=== PATIENT | male | born 1955 | race Caucasian/White ===

== ENCOUNTER 2018-12-18 15:48 | Inpatient (IN) | payer MEDICARE ==
[2018-12-18 18:14] LABS: Absolute Lymphocytes (CBC) 0.4 K/uL (0.7-4.9); Basophils % 0.5 % (0-1.3); Eosinophils % 0.5 % (0-4.4); Hematocrit 42.6 % (39.6-49.0); Lymphocytes % 9.5 % (15.3-44.8); MPV 9.8 fL (7.6-11.3); Monocytes % 18.9 % (3.3-12.3); RBC Red Blood Cell Count 5.15 M/uL (4.33-5.43)
[2018-12-18 18:31] LABS: Bilirubin Direct 0.2 mg/dL (0-0.2); Bilirubin Total 0.7 mg/dL (0.2-1.0); Potassium 4.2 mmol/L (3.5-5.1); Protein, Total 7.1 g/dL (6.4-8.2)
[2018-12-18] MEDS ORDERED: FENTANYL CITR 100 MCG/2 ML ONE ×2 (18:45→20:36)
[2018-12-18] MEDS ORDERED: NA CHLORIDE 0.9% 2,000 ML ONE (18:46)
[2018-12-18] MEDS ORDERED: ONDANSETRON 4 MG/2 ML VIAL ONE (18:46)
[2018-12-18 18:59] LABS: Blood Morphology Comment NOT SEEN (NOT SEEN); Platelet Estimate DECR; Urine White Blood Cell Casts OK
--- NOTE | 2018-12-18 19:38 | RAD REPORT ---
EXAM DESCRIPTION: CTAbdomen Pelvis W Contrast - 12/18/2018 7:27 pm CLINICAL HISTORY: Abdominal pain. ABD PAIN COMPARISON: <Comparisons> TECHNIQUE: Biphasic CT imaging of the abdomen and pelvis was performed with 100 ml non-ionic IV cont rast. All CT scans are performed using dose optimization technique as appropriate and may include automated exposure control or mA/KV adjustment according to patient size. FINDINGS: The lung bases are clear. The liver contains multiple low-density lesions, similar to comparative study. The spleen appears mod erately enlarged. The pancreas, adrenal glands and kidneys show no acute or worrisome process. Bulky adenopathy is seen in the hepatic hilum region indicate aortocaval region measuring 4.9 x 4.5 c m. Enlarged lymph nodes are seen in the retroperitoneum and the small bowel mesentery. No bowel obstr uction, free fluid or free air. The appendix is normal. No lytic or blastic bone lesion. IMPRESSION: No acute intra-abdominal or pelvic finding. Bulky adenopathy in the abdomen and multiple hypodense liver lesions are present compatible with recently diagnosed lymphoma history. Splenomegaly.
--- NOTE | 2018-12-18 20:23 | ER ---
Nurse's Notes [facility] [place] Name: Edith Mcconnell Jr Age: 63 yrs Sex: Male : 1955 Arrival Date: 12/18/2018 Time: 15:54 Bed 27 Private MD: Diagnosis: Generalized abdominal pain;Cutaneous T-cell lymphoma, unspecified, intra-abdominal lymph nodes Presentation: 12/18 16:22 Presenting complaint: Patient states: States he was diagnosed with lymphoma a week ago and hasn't started chemotherapy yet. He was prescribed Tramadol for pain by GI but it is not working on him. Pt C/O abd pain that radiates to the back currently 4/1o but at worst is a 10/10. Pt also experiencing loose bowel movement lately and has fever last night of 101.8. Transition of care: patient was not received from another setting of care. Onset of symptoms was December 17, 2018. Risk Assessment: Do you want to hurt yourself or someone else? Patient reports no desire to harm self or others. Initial Sepsis Screen: Does the patient meet any 2 criteria? No. Patient's initial sepsis screen is negative. Does the patient have a suspected source of infection? No. Patient's initial sepsis screen is negative. Care prior to arrival: None. 16:22 Method Of Arrival: Wheelchair 16:22 Acuity: ANA 3 Triage Assessment: 16:26 General: Appears in no apparent distress. Pain: Complains of pain in abdomen Pain wh radiates to back Pain currently is 4 out of 10 on a pain scale. at worst was 10 out of 10 on a pain scale. Pain began 1 day ago. 16:26 General: Behavior is calm, cooperative, appropriate for age. Historical: - Allergies: 16:31 Avelox; - Home Meds: 16:31 tamsulosin 0.4 mg oral cp24 [Active]; pantoprazole 40 mg oral TbEC [Active]; levocetirizine 5 mg oral tab [Active]; - PMHx: 16:31 Diabetes - NIDDM; Hyperlipidemia; - Immunization history:: Adult Immunizations up to date. - Social history:: Smoking status: Patient/guardian denies using tobacco. - Ebola Screening: : Patient negative for fever greater than or equal to 101.5 degrees Fahrenheit, and additional compatible Ebola Virus Disease symptoms Patient denies exposure to infectious person. Screenin:25 Abuse screen: Denies threats or abuse. Denies injuries from another. Nutritional wh screening: No deficits noted. Tuberculosis screening: No symptoms or risk factors identified. Fall Risk None identified. Assessment: 17:10 General: Appears in no apparent distress. Behavior is calm, cooperative, appropriate wh for age. Pain: Complains of pain in abdomen Pain radiates to back Pain currently is 7 out of 10 on a pain scale. at worst was 10 out of 10 on a pain scale. Quality of pain is described as aching, Pain began 2-3 days ago. Neuro: Level of Consciousness is awake, alert, obeys commands, Oriented to person, place, time, situation, Appropriate for age [employer] Editor are equal bilaterally. Cardiovascular: Heart tones S1 S2. Respiratory: Airway is patent Respiratory effort is even, unlabored, Respiratory pattern is regular, symmetrical. GI: Abdomen is flat, non-distended, Bowel sounds present X 4 quads. Abd is soft X 4 quads. : No signs and/or symptoms were reported regarding the genitourinary system. EENT: No signs and/or symptoms were reported regarding the EENT system. Derm: Skin is intact, is healthy with good turgor, Skin is pink, warm \T\ dry. normal. Musculoskeletal: Range of motion: intact in all extremities. 18:05 Reassessment: Patient appears in no apparent distress at this time. Patient and/or wh family updated on plan of care and expected duration. Pain level reassessed. Patient is alert, oriented x 3, equal unlabored respirations, skin warm/dry/pink. 19:00 Reassessment: Patient appears in no apparent distress at this time. Patient and/or wh family updated on plan of care and expected duration. Pain level reassessed. Patient is alert, oriented x 3, equal unlabored respirations, skin warm/dry/pink. Patient states feeling better. Patient states symptoms have improved. 20:02 Reassessment: Patient appears in no apparent distress at this time. Patient and/or wh family updated on plan of care and expected duration. Pain level reassessed. Patient is alert, oriented x 3, equal unlabored respirations, skin warm/dry/pink. 20:55 Reassessment: Patient appears in no apparent distress at this time. Patient and/or wh family updated on plan of care and expected duration. Pain level reassessed. Patient is alert, oriented x 3, equal unlabored respirations, skin warm/dry/pink. 22:56 Reassessment: Patient appears in no apparent distress at this time. Patient and/or wh family updated on plan of care and expected duration. Pain level reassessed. Patient is alert, oriented x 3, equal unlabored respirations, skin warm/dry/pink. Patient states feeling better. Patient states symptoms have improved. Vital Signs: 16:27 BP 99 / 71; Pulse 71; Resp 18; Temp 98.2; Pulse Ox 100% on R/A; wh 17:41 BP 104 / 88; Pulse 72; Resp 12; Pulse Ox 100% on R/A; mh5 19:00 BP 113 / 61; Pulse 74; Resp 21; Temp 97.7(O); Pulse Ox 99% on R/A; mh5 20:57 BP 110 / 63; Pulse 76; Resp 18; Pulse Ox 94% on R/A; ED Course: 15:54 Patient arrived in ED. as 16:11 Antonio Rosado is Primary Nurse. 16:25 Triage completed. 16:26 Arm band placed on left wrist. 16:27 Patient has correct armband on for positive identification. Bed in low position. Call light in reach. Side rails up X 1. Pulse ox on. NIBP on. 18:09 Silas Almazan MD is Attending Physician. kdr 18:27 Inserted saline lock: 20 gauge in right antecubital area, using aseptic technique. Blood collected. 19:27 CT Abd/Pelvis - IV Contrast Only In Process Unspecified. EDMS 19:40 Attending Physician role handed off by Silas Almazan MD gs 19:40 Fransico Vogt MD is Attending Physician. gs 20:19 Zulay Villasenor MD is Hospitalizing Provider. 23:08 No provider procedures requiring assistance completed. Patient admitted, IV remains in place. Administered Medications: 18:38 Drug: fentaNYL (PF) 50 mcg Route: IVP; Site: right antecubital; 19:37 Follow up: Response: No adverse reaction 18:38 Drug: Zofran 4 mg Route: IVP; Site: right antecubital; 19:37 Follow up: Response: No adverse reaction 18:38 Drug: NS 0.9% 1000 ml Route: IV; Rate: 1 bolus; Site: right antecubital; 19:37 Follow up: IV Status: Completed infusion 19:36 Drug: NS 0.9% 1000 ml Route: IV; Rate: 125 ml/hr; Site: right antecubital; 23:12 Follow up: IV Status: Infusion continued upon admission 20:29 Drug: fentaNYL (PF) 50 mcg Route: IVP; Site: right antecubital; 23:12 Follow up: Response: No adverse reaction Outcome: 20:22 Decision to Hospitalize by Provider. 23:08 Admitted to Tele accompanied by tech, family with patient, via stretcher, room 429, with chart, Report called to Moe CALDERON 23:10 Condition: improved 23:10 Instructed on the need for admit. 23:11 Patient left the ED. Signatures: Dispatcher [employer] EDMS Silas Almazan MD MD kdr Martinez, Amelia as Martinez, [facility] Antonio Rosado Fransico Vogt MD MD
--- NOTE | 2018-12-18 20:23 | EDPHYS ---
Physician Documentation [facility] [place] Name: Edith Mcconnell Jr Age: 63 yrs Sex: Male : 1955 Arrival Date: 12/18/2018 Time: 15:54 Bed 27 Private MD: ED Physician Fransico Vogt HPI: 12/18 18:19 This 63 yrs old Male presents to ER via Wheelchair with complaints of Pain kdr All Over - cancer. 18:19 The patient presents with abdominal pain that is diffuse. Onset: The symptoms/episode kdr began/occurred Has been on going for weeks but in the last four days much worse and last night was unable to sleep due to pain. The symptoms radiate to left back. Associated signs and symptoms: Pertinent positives: nausea and vomiting, diarrhea, Pertinent negatives: chest pain, constipation, dysuria, fever, palpitations, shortness of breath, testicular pain, vomiting blood. The symptoms are described as achy, burning, crampy, waxing/waning. Modifying factors: The symptoms are alleviated by nothing, the symptoms are aggravated by coughing, movement, touching the area, vomiting. Severity of pain: At its worst the pain was incapacitating in the emergency department the pain has improved mildly. The patient has experienced similar episodes in the past, but today's symptoms are worse, more painful. The patient has been recently seen by a physician: Dr. Bustos with referral to Dr. Owusu but as yet had not seen her. Historical: - Allergies: 16:31 Avelox; wh - Home Meds: 16:31 tamsulosin 0.4 mg oral cp24 [Active]; pantoprazole 40 mg oral TbEC [Active]; levocetirizine 5 mg oral tab [Active]; - PMHx: 16:31 Diabetes - NIDDM; Hyperlipidemia; wh - Immunization history:: Adult Immunizations up to date. - Social history:: Smoking status: Patient/guardian denies using tobacco. - Ebola Screening: : Patient negative for fever greater than or equal to 101.5 degrees Fahrenheit, and additional compatible Ebola Virus Disease symptoms Patient denies exposure to infectious person. ROS: 18:19 Constitutional: Negative for fever, chills, and weight loss, Eyes: Negative for injury, kdr pain, redness, and discharge, ENT: Negative for injury, pain, and discharge, Neck: Negative for injury, pain, and swelling, Cardiovascular: Negative for chest pain, palpitations, and edema, Respiratory: Negative for shortness of breath, cough, wheezing, and pleuritic chest pain, Back: Negative for injury and pain, : Negative for injury, bleeding, discharge, and swelling, MS/Extremity: Negative for injury and deformity, Skin: Negative for injury, rash, and discoloration, Neuro: Negative for headache, weakness, numbness, tingling, and seizure activity. Psych: Negative for depression, anxiety, suicide ideation, homicidal ideation, and hallucinations, Allergy/Immunology: Negative for hives, rash, and allergies, Endocrine: Negative for neck swelling, polydipsia, polyuria, polyphagia, and marked weight changes, Hematologic/Lymphatic: Negative for swollen nodes, abnormal bleeding, and unusual bruising. 18:19 Abdomen/GI: Positive for abdominal pain, nausea and vomiting, diarrhea, abdominal cramps, Negative for dysphagia, hematemesis, black/tarry stool, rectal pain, rectal bleeding, bowel incontinence, flatulence. Exam: 18:19 Constitutional: This is a well developed, well nourished patient who is awake, alert, kdr and in no acute distress. Head/Face: Normocephalic, atraumatic. Eyes: Pupils equal round and reactive to light, extra-ocular motions intact. Lids and lashes normal. Conjunctiva and sclera are non-icteric and not injected. Cornea within normal limits. Periorbital areas with no swelling, redness, or edema. Neck: Trachea midline, no thyromegaly or masses palpated, and no cervical lymphadenopathy. Supple, full range of motion without nuchal rigidity, or vertebral point tenderness. No Meningismus. Chest/axilla: Normal chest wall appearance and motion. Nontender with no deformity. No lesions are appreciated. Cardiovascular: Regular rate and rhythm with a normal S1 and S2. No gallops, murmurs, or rubs. Normal PMI, no JVD. No pulse deficits. Respiratory: Lungs have equal breath sounds bilaterally, clear to auscultation and percussion. No rales, rhonchi or wheezes noted. No increased work of breathing, no retractions or nasal flaring. Back: No spinal tenderness. No costovertebral tenderness. Full range of motion. Skin: Warm, dry with normal turgor. Normal color with no rashes, no lesions, and no evidence of cellulitis. MS/ Extremity: Pulses equal, no cyanosis. Neurovascular intact. Full, normal range of motion. Neuro: Awake and alert, GCS 15, oriented to person, place, time, and situation. Cranial nerves II-XII grossly intact. Motor strength 5/5 in all extremities. Sensory grossly intact. Cerebellar exam normal. Normal gait. Psych: Awake, alert, with orientation to person, place and time. Behavior, mood, and affect are within normal limits. 18:19 Abdomen/GI: Inspection: abdomen appears normal, Bowel sounds: active, all quadrants, high pitched, all quadrants. hyperactive, Palpation: soft, mild abdominal tenderness, in all quadrants. Vital Signs: 16:27 BP 99 / 71; Pulse 71; Resp 18; Temp 98.2; Pulse Ox 100% on R/A; wh 17:41 BP 104 / 88; Pulse 72; Resp 12; Pulse Ox 100% on R/A; mh5 19:00 BP 113 / 61; Pulse 74; Resp 21; Temp 97.7(O); Pulse Ox 99% on R/A; mh5 20:57 BP 110 / 63; Pulse 76; Resp 18; Pulse Ox 94% on R/A; wh MDM: 18:19 Data reviewed: vital signs, nurses notes. Counseling: I had a detailed discussion with kdr the patient and/or guardian regarding: the historical points, exam findings, and any diagnostic results supporting the discharge/admit diagnosis, lab results, radiology results. 19:41 Patient medically screened. gs 20:18 Differential diagnosis: appendicitis, bowel obstruction, pancreatitis, Peptic Ulcer gs Disease. Response to treatment: the patient's symptoms have mildly improved after treatment. ED course: pt persistent pain after 2 rounds fentanyl, recent ca dx no pain regimen will place in obs. 12/18 17:42 Order name: Basic Metabolic Panel; Complete Time: 19:40 12/18 17:42 Order name: CBC with Diff; Complete Time: 19:40 12/18 17:42 Order name: Creatinine for Radiology; Complete Time: 19:40 12/18 17:42 Order name: Hepatic Function; Complete Time: 19:40 12/18 17:42 Order name: Lipase; Complete Time: 19:40 12/18 18:25 Order name: CBC Smear Scan; Complete Time: 19:40 EDCO 12/18 17:33 Order name: EKG - Nurse/Tech; Complete Time: 17:41 12/18 17:42 Order name: IV Saline Lock; Complete Time: 18:02 12/18 18:19 Order name: CT Abd/Pelvis - IV Contrast Only; Complete Time: 19:40 [facility] 12/18 17:42 Order name: Labs collected and sent; Complete Time: 18:02 Administered Medications: 18:38 Drug: fentaNYL (PF) 50 mcg Route: IVP; Site: right antecubital; 19:37 Follow up: Response: No adverse reaction 18:38 Drug: Zofran 4 mg Route: IVP; Site: right antecubital; 19:37 Follow up: Response: No adverse reaction 18:38 Drug: NS 0.9% 1000 ml Route: IV; Rate: 1 bolus; Site: right antecubital; 19:37 Follow up: IV Status: Completed infusion 19:36 Drug: NS 0.9% 1000 ml Route: IV; Rate: 125 ml/hr; Site: right antecubital; 23:12 Follow up: IV Status: Infusion continued upon admission 20:29 Drug: fentaNYL (PF) 50 mcg Route: IVP; Site: right antecubital; 23:12 Follow up: Response: No adverse reaction Disposition: 12/18/18 20:22 Hospitalization ordered by Zulay Villasenor for Observation. Preliminary diagnosis are Generalized abdominal pain, Cutaneous T-cell lymphoma, unspecified, intra-abdominal lymph nodes. - Bed requested for Telemetry/MedSurg (observation). - Status is Observation. - Condition is Stable. - Problem is new. - Symptoms are unchanged. UTI on Admission? No Signatures: Dispatcher [employer] EDSilas Foster MD MD kdr Williams, Irene, RN RN Alice Sidhu RN RN Antonio Rosado Fransico Vogt MD MD gs Corrections: (The following items were deleted from the chart) 22:02 20:22 Hospitalization Ordered by Zulay Villasenor MD for Observation. Preliminary diagnosis is Generalized abdominal pain; Cutaneous T-cell lymphoma, unspecified, intra-abdominal lymph nodes. Bed requested for Telemetry/MedSurg (observation). Status is Observation. Condition is Stable. Problem is new. Symptoms are unchanged. UTI on Admission? No. gs 23:11 22:02 12/18/2018 20:22 Hospitalization Ordered by Zulay Villasenor MD for Observation. wh Preliminary diagnosis is Generalized abdominal pain; Cutaneous T-cell lymphoma, unspecified, intra-abdominal lymph nodes. Bed requested for Telemetry/MedSurg (observation). Status is Observation. Condition is Stable. Problem is new. Symptoms are unchanged. UTI on Admission? No.
--- NOTE | 2018-12-18 22:33 | P.HP ---
Certification for Inpatient Patient admitted to: Observation With expected LOS: <2 Midnights Practitioner: I am a practitioner with admitting privileges, knowledge of patient current condition, hospital course, and medical plan of care. Services: Services provided to patient in accordance with Admission requirements found in Title 42 Section 412.3 of the Code of Federal Regulations Patient History Date of Service: 12/18/18 Reason for admission: intractable abdominal pain History of Present Illness: Mr Mcconnell is a 63 years old male with history of DM II, dyslipidemia, who was recently diagnosed with B-Cell lymphoma. He has had abdominal pain. He got prescribed Tramadol PO, initially it worked, however, in the last couple of days , his pain has been worse. He denied nausea or vomiting, no constipation either. He has fever and night sweats. He lost about 35 Lb in the last 3 months. He came to ED tonight because symptoms got worse. He has not started oncologic treatment yet. CT abd/pelvis consistent with multiple intra-abdominal lymphadenopathy and liver lesion, consistent with his recent diagnose of lymphoma. Lab work remarkable for abnormal liver function, WBC 4.2 K. Allergies moxifloxacin [From Avelox] Allergy (Verified 12/09/18 12:26) Rash Home medications list reviewed: Yes Home Medications: Aspirin [Aspir-Low] 81 mg PO DAILY 12/09/18 Atorvastatin Calcium [Lipitor] 40 mg PO BEDTIME 12/09/18 B-Complex with Vitamin C [Super B Complex-Vitamin C] 1 each PO DAILY 12/09/18 Cholecalciferol (Vitamin D3) [Vitamin D3] 1,000 unit PO DAILY 12/09/18 Empagliflozin [Jardiance] 10 mg PO DAILY 12/09/18 Krill/[place]-3/Dha/Epa/Lipids [Krill Oil 350 mg Softgel] 1 each PO DAILY Lifitegrast [Xiidra] 1 each OP DAILY 12/09/18 Meloxicam 15 mg PO PRN PRN 12/09/18 Multivit-Min/FA/Lycopen/Lutein [Centrum Silver Tablet] 1 each PO DAILY 12/09/18 Pantoprazole [Protonix Tab] 40 mg PO DAILY 12/09/18 Tamsulosin [Flomax] 0.4 mg PO DAILY 12/09/18 Turmeric/Turmeric Root Extract [Turmeric 500 mg Capsule] 1 each PO DAILY - Past Medical/Surgical History -: B-cell Lymphoma -: DM II -: dyslipidemia Past Surgical History: Reviewed- Non-Contributory - Family History Family History: Reviewed- Non-Contributory - Social History Smoking Status: Never smoker Alcohol use: Yes CD- Drugs: No Caffeine use: Yes Place of Residence: Home Review of Systems 10-point ROS is otherwise unremarkable Physical Examination - Physical Exam General: Alert, In no apparent distress HEENT: Atraumatic, PERRLA, Mucous membr. moist/pink, EOMI, Sclerae nonicteric Neck: Supple, 2+ carotid pulse no bruit, No LAD, Without JVD or thyroid abnormality Respiratory: Clear to auscultation bilaterally, Normal air movement Cardiovascular: Regular rate/rhythm, Normal S1 S2 Gastrointestinal: Hypoactive, Tenderness (diffuse to palpation) Musculoskeletal: No tenderness Integumentary: No rashes Neurological: Normal speech, Normal strength at 5/5 x4 extr, Normal tone, Normal affect Lymphatics: No axilla or inguinal lymphadenopathy - Studies Laboratory Data (last 24 hrs) 12/18/18 18:00: Creatinine 1.06 12/18/18 18:00: WBC 4.2 L, Hgb 13.8, Hct 42.6, Plt Count 141 L 12/18/18 18:00: Sodium 134 L, Potassium 4.2, BUN 19 H, Creatinine 1.09, Glucose 99, Total Bilirubin 0.7, AST 124 H, ALT 79 H, Alkaline Phosphatase 175 H, Lipase 59 L Assessment and Plan - Problems (Diagnosis) (1) B-cell lymphoma Current Visit: Yes Status: Acute Qualifiers: B-cell lymphoma type: diffuse large B-cell Lymphoma site: intra-abdominal nodes Qualified Code(s): C83.33 - Diffuse large B-cell lymphoma, intra- abdominal lymph nodes (2) Diabetes mellitus Current Visit: Yes Status: Acute Qualifiers: Diabetes mellitus type: type 2 Diabetes mellitus exterminator helper termite insulin use: without exterminator helper termite use Diabetes mellitus complication status: with other specified complication Qualified Code(s): E11.69 - Type 2 diabetes mellitus with other specified complication (3) Dyslipidemia Current Visit: Yes Status: Acute - Plan Will admit the patient due to intractable abdominal pain. Start IV opioid medication, consult Dr Owusu to establish oncologist. - Advance Directives Does patient have a Living Will: No Does patient have a Durable POA for Healthcare: No - Code Status/Comfort Care Code Status Assessed: Yes Code Status: Full Code
[2018-12-18] MEDS ORDERED: ONDANSETRON 4 MG/2 ML VIAL IV PRN (23:06)
[2018-12-18 23:36] VITALS: BMI 22.7
[2018-12-19] MEDS: ACETAMINOPHEN 500 MG TAB PO PRN ×4 (00:11→23:37)
[2018-12-19] MEDS: HYDROMORPHONE HCL 1 MG/ML INJ IV PRN ×6 (00:11→20:50)
[2018-12-19] MEDS: NA CHLORIDE 0.9% 1,000 ML IV SCH ×3 (00:12→13:15)
[2018-12-19] MEDS: INSULIN -REGULAR HUMAN 50 UNIT/0.5 ML ML SQ SCH ×4 (07:30→20:22)
[2018-12-19] MEDS ORDERED: NA CHLORIDE 0.9% 1,000 ML IV ONE (08:08)
[2018-12-19] MEDS: ENOXAPARIN 40 MG/0.4 ML SQ SCH (08:20)
[2018-12-19] MEDS: CEFTRIAXONE/SWI 1gm 1 GM/10 ML SYR IV SCH (09:05)
--- NOTE | 2018-12-19 09:56 | RAD REPORT ---
EXAM DESCRIPTION: CT - Head Brain Wo Cont - 12/19/2018 9:42 am CLINICAL HISTORY: change of status Headache, drowsiness COMPARISON: No comparisons TECHNIQUE: All CT scans are performed using dose optimization technique as appropriate and may inclu de automated exposure control or mA/KV adjustment according to patient size. FINDINGS: No intracranial hemorrhage, hydrocephalus or extra-axial fluid collection.No areas of brai n edema or evidence of midline shift. Mild mucosal thickening of the inferior left maxillary antrum. Paranasal sinuses and mastoids otherwi se are clear. Right orbital prosthesis. The calvarium is intact. IMPRESSION: No acute intracranial abnormality.
[2018-12-19] MEDS ORDERED: SCOPOLAMINE HYDROBROMIDE PATCH TD SCH (11:27)
--- NOTE | 2018-12-19 12:25 | P.PN ---
Subjective Date of Service: 12/19/18 Chief Complaint: intractable abdominal pain Patient seen and examined at bedside with RN. Chart reviewed. Pending oncology evaluation at this time. Patient overnight had a low-grade temperature and this morning had a temperature 102. Still complains of having a lot of pain to the right lower quadrant. Denies having any nausea vomiting diarrhea at this time. Review of Systems 10-point ROS is otherwise unremarkable Physical Examination - Vital Signs Temperature: 100.2 F Blood Pressure: 93/57 Pulse: 84 Respirations: 14 Pulse Ox (%): 94 - Physical Exam General: Alert, In no apparent distress HEENT: Atraumatic, PERRLA, EOMI Neck: Supple, JVD not distended Respiratory: Clear to auscultation bilaterally, Normal air movement Cardiovascular: Regular rate/rhythm, Normal S1 S2 Gastrointestinal: Normal bowel sounds, No tenderness Musculoskeletal: Erythema, Tenderness, Warmth Integumentary: No rashes Neurological: Normal speech, Normal tone, Normal affect Lymphatics: No axilla or inguinal lymphadenopathy - Studies Laboratory Data (last 24 hrs) 12/18/18 18:00: Creatinine 1.06 12/18/18 18:00: WBC 4.2 L, Hgb 13.8, Hct 42.6, Plt Count 141 L 12/18/18 18:00: Sodium 134 L, Potassium 4.2, BUN 19 H, Creatinine 1.09, Glucose 99, Total Bilirubin 0.7, AST 124 H, ALT 79 H, Alkaline Phosphatase 175 H, Lipase 59 L Medications List Reviewed: Yes Assessment And Plan - Current Problems (Diagnosis) (1) Fever Current Visit: Yes Status: Acute Plan: Fever most likely secondary to lymphoma -patient started on IV fluids and IV antibiotics at this time -cultures are pending at this time -will continue to monitor closely. -Tylenol and Motrin p.r.n. for fever Qualifiers: Fever type: unspecified Qualified Code(s): R50.9 - Fever, unspecified (2) B-cell lymphoma Current Visit: Yes Status: Acute Plan: Patient with new diagnosis of B-cell lymphoma with intra-abdominal lymph nodes enlarged along with liver lesions. -oncologist been consulted. Awaiting recommendations at this time -will follow up with oncology for further recommendations Qualifiers: B-cell lymphoma type: unspecified B-cell Lymphoma site: intra-abdominal nodes Qualified Code(s): C85.13 - Unspecified B-cell lymphoma, intra- abdominal lymph nodes (3) Diabetes mellitus Current Visit: Yes Status: Chronic Plan: ISS and accuchecks Qualifiers: Diabetes mellitus type: type 2 Diabetes mellitus rodent exterminator insulin use: without rodent exterminator use Diabetes mellitus complication status: with other specified complication Qualified Code(s): E11.69 - Type 2 diabetes mellitus with other specified complication (4) Dyslipidemia Current Visit: Yes Status: Chronic - Plan Pending clinical improvement at this time. Will follow up with oncology recommendations. Discharge Plan: Home Plan to discharge in: 48 Hours - Code Status/Comfort Care Code Status Assessed: Yes Critical Care: No
[2018-12-19] MEDS ORDERED: SODIUM CHLORIDE 0.9% 10ML INJ IV PRN (12:38)
[2018-12-19] MEDS ORDERED: PROMETHAZINE 25 MG/ML VIAL IM ONE (12:38)
[2018-12-19] MEDS: PANTOPRAZOLE 40 MG INJ IVP SCH (13:09)
--- NOTE | 2018-12-19 15:04 | EKG ---
Test Date: 2018-12-18 Test Time: 17:28:02 Server Developer: KELLEE MEASUREMENT RESULTS: Intervals: Rate: 74 NE: 166 QRSD: 100 QT: 366 QTc: 406 [place]: P: 51 NE: 166 QRS: 47 T: 40 INTERPRETIVE STATEMENTS: Sinus rhythm with premature atrial complexes in a pattern of bigeminy Otherwise normal ECG No previous ECG available for comparison Electronically Signed On 12-19-18 15:03:16 CDT by Marcus Marlow
[2018-12-19] MEDS: GLUCERNA SHAKE 237 ML CAN PO SCH (20:22)
[2018-12-19 22:19] LABS: Urine Appearance CLEAR; Urine Bilirubin NEGATIVE (NEG); Urine Blood NEGATIVE (NEG); Urine Color YELLOW; Urine Glucose NEGATIVE (NEG); Urine Protein NEGATIVE (NEG); Urine Specific Gravity <=1.005 (1.005-1.030)
[2018-12-19 22:21] LABS: Urine Microscopic Reflex NO UMIC
[2018-12-20] MEDS: HYDROMORPHONE HCL 1 MG/ML INJ IV PRN ×3 (01:12→10:32)
[2018-12-20] MEDS: NA CHLORIDE 0.9% 1,000 ML IV SCH ×2 (05:06→10:36)
[2018-12-20] MEDS: ACETAMINOPHEN 500 MG TAB PO PRN (06:46)
[2018-12-20] MEDS: INSULIN -REGULAR HUMAN 50 UNIT/0.5 ML ML SQ SCH ×2 (07:30→11:30)
[2018-12-20] MEDS: ENOXAPARIN 40 MG/0.4 ML SQ SCH (07:46)
[2018-12-20] MEDS: CEFTRIAXONE/SWI 1gm 1 GM/10 ML SYR IV SCH (07:46)
[2018-12-20] MEDS: PANTOPRAZOLE 40 MG INJ IVP SCH (07:47)
[2018-12-20] MEDS: GLUCERNA SHAKE 237 ML CAN PO SCH (07:48)
[2018-12-20 08:08] VITALS: O2SAT 96
[2018-12-20 10:19] VITALS: TEMP 99.8
[2018-12-20 10:36] VITALS: BP 102/52
--- NOTE | 2018-12-20 11:58 | P.DS ---
Admission Date: 12/19/18 Discharge Date: 12/20/18 Disposition: ROUTINE DISCHARGE Discharge Condition: GOOD Reason for Admission: intractable abdominal pain Consultations: Oncology - Problems (1) Fever Current Visit: Yes Status: Acute Qualifiers: Fever type: unspecified Qualified Code(s): R50.9 - Fever, unspecified (2) B-cell lymphoma Current Visit: Yes Status: Acute Qualifiers: B-cell lymphoma type: unspecified B-cell Lymphoma site: intra-abdominal nodes Qualified Code(s): C85.13 - Unspecified B-cell lymphoma, intra- abdominal lymph nodes (3) Diabetes mellitus Current Visit: Yes Status: Chronic Qualifiers: Diabetes mellitus type: type 2 Diabetes mellitus halfway insulin use: without halfway use Diabetes mellitus complication status: with other specified complication Qualified Code(s): E11.69 - Type 2 diabetes mellitus with other specified complication (4) Dyslipidemia Current Visit: Yes Status: Chronic Brief History of Present Illness: Mr Mcconnell is a 63 years old male with history of DM II, dyslipidemia, who was recently diagnosed with B-Cell lymphoma. He has had abdominal pain. He got prescribed Tramadol PO, initially it worked, however, in the last couple of days , his pain has been worse. He denied nausea or vomiting, no constipation either. He has fever and night sweats. He lost about 35 Lb in the last 3 months. He came to [facility] because symptoms got worse. He has not started oncologic treatment yet. CT abd/pelvis consistent with multiple intra-abdominal lymphadenopathy and liver lesion, consistent with his recent diagnose of lymphoma. Lab work remarkable for abnormal liver function, WBC 4.2 K. Hospital Course: Overall during the hospital stay patient remained stable. Patient was initially admitted to the hospital for intractable abdominal pain. Patient was started on IV pain medication here in the hospital. Patient has a recent diagnosis of B-cell lymphoma. Patient also had a temperature of 102 point to here in the hospital on. Patient was ruled out for any infectious etiology. Patient's fever is most likely secondary to his B-cell lymphoma. Patient's pain was controlled on IV morphine and was switched over to oral tramadol here in the hospital. Patient does have a prescription of hydrocodone at home along with tramadol. Patient was asked to continue taking the hydrocodone every 3 hr along with tramadol q3 hr to alternate the medication. Patient and demonstrated understanding at that point patient was discharged home under stable condition. Patient was asked to follow up with oncology in about 1-2 days post discharge has an appointment on Saturday at 9:30 a.m.. Patient demonstrate understanding and thus was discharged home under stable condition. Vital Signs/Physical Exam: Temp Pulse Resp BP Pulse Ox 99.8 F 63 18 102/52 L 95 12/20/18 10:00 12/20/18 08:00 12/20/18 08:00 12/20/18 08:00 12/20/18 04:00 General: Alert, In no apparent distress HEENT: Atraumatic, PERRLA, EOMI Neck: Supple, JVD not distended Respiratory: Clear to auscultation bilaterally, Normal air movement Cardiovascular: Regular rate/rhythm, Normal S1 S2 Gastrointestinal: Normal bowel sounds, No tenderness Musculoskeletal: No tenderness Integumentary: No rashes Neurological: Normal speech, Normal tone, Normal affect Lymphatics: No axilla or inguinal lymphadenopathy Laboratory Data at Discharge: WBC 4.2 K/uL (4.3-10.9) L 12/18/18 18:00 Hgb 13.8 g/dL (13.6-17.9) 12/18/18 18:00 Hct 42.6 % (39.6-49.0) 12/18/18 18:00 Plt Count 141 K/uL (152-406) L 12/18/18 18:00 Sodium 134 mmol/L (136-145) L 12/18/18 18:00 Potassium 4.2 mmol/L (3.5-5.1) 12/18/18 18:00 BUN 19 mg/dL (7-18) H 12/18/18 18:00 Creatinine 1.09 mg/dL (0.55-1.3) 12/18/18 18:00 Glucose 99 mg/dL (74-106) 12/18/18 18:00 Magnesium 2.1 mg/dL (1.8-2.4) 12/20/18 05:20 Total Bilirubin 0.7 mg/dL (0.2-1.0) 12/18/18 18:00 AST 124 U/L (15-37) H 12/18/18 18:00 ALT 79 U/L (12-78) H 12/18/18 18:00 Alkaline Phosphatase 175 U/L (45-117) H 12/18/18 18:00 Lipase 59 U/L (73-393) L 12/18/18 18:00 Home Medications: Krill/[place]-3/Dha/Epa/Lipids [Krill Oil 350 mg Softgel] 1 cap PO DAILY 12/18/18 Levocetirizine Dihydrochloride [Xyzal] 1 tab PO DAILY 12/18/18 Lifitegrast [Xiidra] 2 drops RIGHT EYE DAILY 12/18/18 Multivit-Min/FA/Lycopen/Lutein [Centrum Silver Tablet] 1 each PO DAILY 12/18/18 Pantoprazole [Protonix Tab*] 1 tab PO DAILY 12/18/18 Tamsulosin [Flomax*] 1 tab PO DAILY 12/18/18 Vit D3 1,000 iu PO DAILY 12/18/18 Diet: Regular Activity: Ad luda Followup: Amanda Brown MD [ACTIVE - CAN ADMIT] - 1-2 Days (Call to schedule an appointment)
[2018-12-20] MEDS ORDERED: PANTOPRAZOLE 40 MG INJ IVP SCH (12:38)
== END 2018-12-20 13:04 | disposition home or self-care (01) | DRG 392 ==
LOC: ER 15:48 → ERHOLD 21:43 → 4TH 22:40 → OBSVTOIN 12-19 14:09
PROVIDERS: ADMIT Internal Medicine; ATTEND Internal Medicine
DX: R10.9 Unspecified abdominal pain (principal); C85.83 Other specified types of non-Hodgkin lymphoma, intra-abdominal lymph nodes; R50.81 Fever presenting with conditions classified elsewhere; E11.9 Type 2 diabetes mellitus without complications; E78.5 Hyperlipidemia, unspecified
CPT/HCPCS: 36415; 70450; 74177; 80048; 80076; 81003; 82962; 83690; 83735; 85025; 93005; 96361; 96374; 96375; 99285; C9113; G0378; J0696; J1170; J1650; J2405; J2550; J3010; J7030; Q9967

== ENCOUNTER 2018-12-20 19:57 | Observation (INO) | payer MEDICARE ==
[2018-12-20] MEDS ORDERED: ONDANSETRON 4 MG/2 ML VIAL IV PRN (20:46)
--- NOTE | 2018-12-20 20:48 | ER ---
Nurse's Notes [facility] Name: Edith Mcconnell Jr Age: 63 yrs Sex: Male : 1955 Arrival Date: 12/20/2018 Time: 19:59 Bed 19 Private MD: Diagnosis: Lymphoblastic (diffuse) lymphoma, unspecified site;Acute pain, not elsewhere classified Presentation: 12/20 20:09 Presenting complaint: Patient states: I was released from the hospital upstairs at la1 about noon. I was DC with tramadol for pain and it is not touching my pain, I have FU with the oncologist on Saturday but cant be in pain this bad until then. Transition of care: patient was not received from another setting of care. Onset of symptoms was December 20, 2018. Risk Assessment: Do you want to hurt yourself or someone else? Patient reports no desire to harm self or others. Initial Sepsis Screen: Does the patient meet any 2 criteria? No. Patient's initial sepsis screen is negative. Does the patient have a suspected source of infection? No. Patient's initial sepsis screen is negative. Care prior to arrival: None. 20:09 Method Of Arrival: Wheelchair la1 20:09 Acuity: ANA 3 la1 Historical: - Allergies: 20:11 Avelox; la1 - PMHx: 20:11 Diabetes - NIDDM; Hyperlipidemia; la1 - Immunization history:: Adult Immunizations up to date. - Social history:: Smoking status: Patient/guardian denies using tobacco. - Ebola Screening: : No symptoms or risks identified at this time. Screenin:58 Abuse screen: Denies threats or abuse. Denies injuries from another. Nutritional eb1 screening: No deficits noted. Tuberculosis screening: No symptoms or risk factors identified. Fall Risk Gait- Weak (10 pts.). Assessment: 20:24 General: Appears uncomfortable, ill, slender, unkempt, Behavior is calm, cooperative, eb1 appropriate for age, quiet, Reports chills for fever for feeling ill for. Pain: Complains of pain in abdomen Pain at worst was 10 out of 10 on a pain scale. Quality of pain is described as aching. Neuro: No deficits noted. Level of Consciousness is awake, alert, obeys commands, Oriented to person, place, time, Bottle Gauger are equal bilaterally Weakness in bilateral. Cardiovascular: No deficits noted. Respiratory: No deficits noted. GI: Abdomen is round Bowel sounds present X 4 quads. Abd is soft Abdomen is tender to palpation X 4 quads. Reports lower abdominal pain, upper abdominal pain, nausea. : No deficits noted. EENT: No deficits noted. No signs and/or symptoms were reported regarding the EENT system. Derm: No deficits noted. No signs and/or symptoms reported regarding the dermatologic system. Musculoskeletal: No deficits noted. No signs and/or symptoms reported regarding the musculoskeletal system. Vital Signs: 20:11 BP 139 / 73; Pulse 92; Resp 16; Temp 99.0(O); Pulse Ox 100% on R/A; Weight 73.03 kg; la1 Height 5 ft. 11 in. (180.34 cm); Pain 8/10; 21:13 BP 121 / 68; Pulse 93; Resp 18; Temp 103.2(O); Pulse Ox 96% on R/A; Pain 8/10; eb1 22:57 BP 100 / 55; Pulse 75; Resp 18; Temp 100.2(O); Pulse Ox 96% on R/A; Pain 5/10; eb1 20:11 Body Mass Index 22.45 (73.03 kg, 180.34 cm) la1 ED Course: 19:59 Patient arrived in ED. mr 20:10 Triage completed. la1 20:11 Arm band placed on left wrist. la1 20:21 Fransico Vogt MD is Attending Physician. gs 20:45 Anai Thomas MD is Hospitalizing Provider. gs 21:13 Patient has correct armband on for positive identification. Bed in low position. eb1 22:59 Chest Single View XRAY Sent. eb1 23:27 No provider procedures requiring assistance completed. Patient admitted, IV remains in eb1 place. Administered Medications: 22:00 Not Given (physician changed order): Tylenol 650 mg PO once eb1 22:00 Drug: Tylenol 500 mg Route: PO; eb1 22:58 Follow up: Response: Temperature is decreased eb1 Outcome: 20:47 Decision to Hospitalize by Provider. gs 23:27 Admitted to Tele accompanied by tech, family with patient, via wheelchair, with chart. eb1 23:27 Condition: good 23:27 Instructed on the need for admit. 23:28 Patient left the ED. eb1 Signatures: Yasmeen Briones Lee, RN RN la1 Fransico Vogt MD MD Eva Burk RN RN eb1
--- NOTE | 2018-12-20 20:48 | EDPHYS ---
Physician Documentation [facility] Name: Edith Mcconnell Jr Age: 63 yrs Sex: Male : 1955 Arrival Date: 12/20/2018 Time: 19:59 Bed 19 Private MD: ED Physician Fransico Vogt HPI: 12/20 20:57 This 63 yrs old Male presents to ER via Wheelchair with complaints of Pain gs All Over. 20:57 Onset: The symptoms/episode began/occurred 1 week(s) ago. Severity of symptoms: At gs their worst the symptoms were severe in the emergency department the symptoms are unchanged. The patient has experienced similar episodes in the past, a few times. The patient has been recently been admitted at [facility], was discharged earlier this week, for similar complaints, but despite evaluation and treatment the patient now has worsening symptoms. Historical: - Allergies: 20:11 Avelox; la1 - PMHx: 20:11 Diabetes - NIDDM; Hyperlipidemia; la1 - Immunization history:: Adult Immunizations up to date. - Social history:: Smoking status: Patient/guardian denies using tobacco. - Ebola Screening: : No symptoms or risks identified at this time. ROS: 20:57 All other systems are negative. gs Exam: 20:57 Head/Face: Normocephalic, atraumatic. Eyes: Pupils equal round and reactive to light, gs extra-ocular motions intact. Lids and lashes normal. Conjunctiva and sclera are non-icteric and not injected. Cornea within normal limits. Periorbital areas with no swelling, redness, or edema. ENT: Nares patent. No nasal discharge, no septal abnormalities noted. Tympanic membranes are normal and external auditory canals are clear. Oropharynx with no redness, swelling, or masses, exudates, or evidence of obstruction, uvula midline. Mucous membranes moist. Neck: Trachea midline, no thyromegaly or masses palpated, and no cervical lymphadenopathy. Supple, full range of motion without nuchal rigidity, or vertebral point tenderness. No Meningismus. Chest/axilla: Normal chest wall appearance and motion. Nontender with no deformity. No lesions are appreciated. Cardiovascular: Regular rate and rhythm with a normal S1 and S2. No gallops, murmurs, or rubs. Normal PMI, no JVD. No pulse deficits. Respiratory: Lungs have equal breath sounds bilaterally, clear to auscultation and percussion. No rales, rhonchi or wheezes noted. No increased work of breathing, no retractions or nasal flaring. Abdomen/GI: Soft, non-tender, with normal bowel sounds. No distension or tympany. No guarding or rebound. No evidence of tenderness throughout. Back: No spinal tenderness. No costovertebral tenderness. Full range of motion. Skin: Warm, dry with normal turgor. Normal color with no rashes, no lesions, and no evidence of cellulitis. MS/ Extremity: Pulses equal, no cyanosis. Neurovascular intact. Full, normal range of motion. Neuro: Awake and alert, GCS 15, oriented to person, place, time, and situation. Cranial nerves II-XII grossly intact. Motor strength 5/5 in all extremities. Sensory grossly intact. Cerebellar exam normal. Normal gait. 20:57 Constitutional: The patient appears alert, awake. Vital Signs: 20:11 BP 139 / 73; Pulse 92; Resp 16; Temp 99.0(O); Pulse Ox 100% on R/A; Weight 73.03 kg; la1 Height 5 ft. 11 in. (180.34 cm); Pain 8/10; 21:13 BP 121 / 68; Pulse 93; Resp 18; Temp 103.2(O); Pulse Ox 96% on R/A; Pain 8/10; eb1 22:57 BP 100 / 55; Pulse 75; Resp 18; Temp 100.2(O); Pulse Ox 96% on R/A; Pain 5/10; eb1 20:11 Body Mass Index 22.45 (73.03 kg, 180.34 cm) la1 MDM: 20:23 Patient medically screened. gs 20:57 Data reviewed: vital signs, nurses notes, old medical records. Response to treatment: There is no appreciated change of the patient's symptoms at this time. Physician consultation: Anai Thomas MD regarding consult, patient's condition, and will see patient in ED, immediately. 12/20 20:44 Order name: CBC with Diff 12/20 20:44 Order name: Basic Metabolic Panel; Complete Time: 21:47 12/20 21:48 Order name: Blood Culture Adult (2) 12/20 21:48 Order name: CPK 12/20 21:48 Order name: Lactate 12/20 21:48 Order name: LFT's 12/20 21:48 Order name: Lipase 12/20 21:48 Order name: Procalcitonin 12/20 21:48 Order name: Protime (+inr) 12/20 21:48 Order name: Troponin (emerg Dept Use Only) 12/20 21:48 Order name: Urine Microscopic Only 12/20 22:30 Order name: Protime (+INR) [facility] 12/20 22:45 Order name: Manual Differential [facility] 12/20 22:50 Order name: Lactate [facility] 12/20 20:51 Order name: CONS Pharmacy Consult [facility] 12/20 21:48 Order name: Chest Single View XRAY 12/20 21:48 Order name: Accucheck; Complete Time: 22:42 12/20 21:48 Order name: Cardiac monitoring; Complete Time: 22:33 12/20 21:48 Order name: EKG - Nurse/Tech; Complete Time: 22:03 12/20 21:48 Order name: IV Saline Lock - Large Bore; Complete Time: 21:51 12/20 21:48 Order name: Labs collected and sent; Complete Time: 21:51 12/20 21:48 Order name: O2 Per Protocol; Complete Time: 23:28 12/20 22:47 Order name: RAD [facility] 12/20 23:04 Order name: Liver (Hepatic) Function [facility] 12/20 23:04 Order name: Creatine Phosphokinase [facility] 12/20 23:04 Order name: Troponin (Emerg Dept Use Only) [facility] 12/20 23:04 Order name: Lipase [facility] 12/20 23:06 Order name: Procalcitonin [facility] 12/20 21:48 Order name: O2 Sat Monitoring; Complete Time: 21:51 Administered Medications: 22:00 Not Given (physician changed order): Tylenol 650 mg PO once eb1 22:00 Drug: Tylenol 500 mg Route: PO; eb1 22:58 Follow up: Response: Temperature is decreased eb1 Disposition: 12/20/18 20:47 Hospitalization ordered by Anai Thomas for Observation. Preliminary diagnosis are Lymphoblastic (diffuse) lymphoma, unspecified site, Acute pain, not elsewhere classified. - Bed requested for Telemetry/MedSurg (observation). - Status is Observation. eb1 - Condition is Stable. - Problem is new. - Symptoms are unchanged. UTI on Admission? No Signatures: Dispatcher [employer] EDMS Bryan Aburto RN RN la1 Alice Sidhu RN RN cg Fransico Vogt MD MD Eva Burk RN RN eb1 Corrections: (The following items were deleted from the chart) 21:10 20:47 Hospitalization Ordered by Anai Thomas MD for Observation. Preliminary cg diagnosis is Lymphoblastic (diffuse) lymphoma, unspecified site; Acute pain, not elsewhere classified. Bed requested for Telemetry/MedSurg (observation). Status is Observation. Condition is Stable. Problem is new. Symptoms are unchanged. UTI on Admission? No. 23:28 21:10 12/20/2018 20:47 Hospitalization Ordered by Anai Thomas MD for Observation. eb1 Preliminary diagnosis is Lymphoblastic (diffuse) lymphoma, unspecified site; Acute pain, not elsewhere classified. Bed requested for Telemetry/MedSurg (observation). Status is Observation. Condition is Stable. Problem is new. Symptoms are unchanged. UTI on Admission? No.
[2018-12-20] MEDS ORDERED: HYDROMORPHONE HCL 1 MG/ML INJ ONE (21:22)
[2018-12-20] MEDS ORDERED: ACETAMINOPHEN 500 MG TAB ONE ×2 (21:23→22:11)
[2018-12-20] MEDS ORDERED: ACETAMINOPHEN 500 MG TAB PO ONE (21:33)
[2018-12-20] MEDS ORDERED: HYDROMORPHONE HCL 1 MG/ML INJ IV ONE (21:34)
[2018-12-20 21:36] LABS: Eosinophils % 0.3 % (0-4.4)
[2018-12-20 21:41] LABS: Absolute Lymphocytes (CBC) 0.2 K/uL (0.7-4.9); Basophils % 0.4 % (0-1.3); Lymphocytes % 8.3 % (15.3-44.8); Monocytes % 17.8 % (3.3-12.3); RBC Red Blood Cell Count 4.35 M/uL (4.33-5.43)
[2018-12-20 21:45] LABS: BUN Blood Urea Nitrogen 13 mg/dL (7-18); Bicarbonate 25 mmol/L (21-32); Glucose Level 122 mg/dL (74-106); Sodium Level 133 mmol/L (136-145)
[2018-12-20 22:29] LABS: Protime INR 1.27
[2018-12-20 22:44] LABS: Blood Morphology Comment NOT SEEN (NOT SEEN); Platelet Estimate DECR
--- NOTE | 2018-12-20 22:46 | RAD REPORT ---
EXAM DESCRIPTION: Ashley Single View12/20/2018 10:37 pm CLINICAL HISTORY: fever COMPARISON: none FINDINGS: The lungs appear clear of acute infiltrate. The heart is normal size IMPRESSION: No acute abnormalities displayed
[2018-12-20 23:04] LABS: ALT/SGPT 57 U/L (12-78); AST/SGOT 110 U/L (15-37); Albumin 2.2 g/dL (3.4-5.0); Alkaline Phosphatase 166 U/L (45-117); Bilirubin Direct 0.2 mg/dL (0-0.2); Bilirubin Total 0.6 mg/dL (0.2-1.0); Creatine Phosphokinase 61 U/L (39-308); Lipase 43 U/L (73-393); Protein, Total 5.7 g/dL (6.4-8.2); Troponin (Emerg Dept Use Only) < 0.02 ng/mL (0.0-0.045)
[2018-12-21 00:33] VITALS: BMI 23.4
[2018-12-21] MEDS: NA CHLORIDE 0.9% 1,000 ML IV SCH ×3 (00:37→18:07)
[2018-12-21] MEDS ORDERED: HYDROCODONE/APAP 10/325 TAB PO PRN ×2 (05:22→11:46)
[2018-12-21] MEDS ORDERED: HYDROMORPHONE HCL 1 MG/ML INJ IV PRN (05:22)
[2018-12-21 05:54] LABS: Absolute Lymphocytes (CBC) 0.3 K/uL (0.7-4.9); Basophils % 0.3 % (0-1.3); Eosinophils % 0.2 % (0-4.4); Lymphocytes % 10.4 % (15.3-44.8); MPV 10.3 fL (7.6-11.3); Monocytes % 15.8 % (3.3-12.3); RBC Red Blood Cell Count 4.49 M/uL (4.33-5.43)
[2018-12-21 06:01] LABS: ALT/SGPT 60 U/L (12-78); AST/SGOT 120 U/L (15-37); Albumin 2.4 g/dL (3.4-5.0); Alkaline Phosphatase 176 U/L (45-117); BUN Blood Urea Nitrogen 11 mg/dL (7-18); Bicarbonate 24 mmol/L (21-32); Bilirubin Total 0.6 mg/dL (0.2-1.0); Glucose Level 120 mg/dL (74-106); Potassium 4.1 mmol/L (3.5-5.1); Protein, Total 5.9 g/dL (6.4-8.2); Sodium Level 134 mmol/L (136-145)
[2018-12-21] MEDS: ACETAMINOPHEN 500 MG TAB PO PRN ×2 (06:45→21:05)
[2018-12-21 07:48] LABS: Urine Bacteria <20 /HPF (NONE SEEN); Urine Culture Reflex Order NOT NEEDED; Urine RBC <5 /HPF (NONE SEEN)
[2018-12-21] MEDS: NA CHLORIDE 0.9% 500 ML IV ONE ×2 (08:23→09:00)
[2018-12-21] MEDS ORDERED: NA CHLORIDE 0.9% 500 ML ONE ×2 (08:38→12:07)
--- NOTE | 2018-12-21 09:44 | P.HP ---
Certification for Inpatient Patient admitted to: Observation With expected LOS: <2 Midnights Patient will require the following post-hospital care: None Practitioner: I am a practitioner with admitting privileges, knowledge of patient current condition, hospital course, and medical plan of care. Services: Services provided to patient in accordance with Admission requirements found in Title 42 Section 412.3 of the Code of Federal Regulations Patient History Date of Service: 12/20/18 Reason for admission: Abdominal pain / fever / intractable pain History of Present Illness: Patient is a 63-year-old gentleman who came into the hospital a few days ago because of severe abdominal pain. He was recently diagnosed with lymphoma. He was scheduled to see Oncology on Saturday for follow-up appointment. He has been having fevers and severe abdominal pain. The abdominal pain was unbearable and he was being given Dilaudid in the hospital. The family states that he was discharged on Ultram. This has not been holding his pain whatsoever. He was diaphoretic with fevers and having severe pain. Although they live quite far from our hospital the decided to bring him back because he was not able to manage at home by himself. In the ER we contemplated given patient hydrocodone to be discharged home with When he came into the ER; however, he was having fevers with temps up to 103. He was fairly lethargic. He would answer some of my questions but his gave me most of his history. Decision was made to admit to the hospital for further evaluation. Allergies moxifloxacin [From Avelox] Allergy (Verified 12/18/18 23:16) Rash Home Medications: Krill/[place]-3/Dha/Epa/Lipids [Krill Oil 350 mg Softgel] 1 cap PO DAILY 12/18/18 Levocetirizine Dihydrochloride [Xyzal] 1 tab PO DAILY 12/18/18 Lifitegrast [Xiidra] 2 drops RIGHT EYE DAILY 12/18/18 Multivit-Min/FA/Lycopen/Lutein [Centrum Silver Tablet] 1 each PO DAILY 12/18/18 Pantoprazole [Protonix Tab*] 1 tab PO DAILY 12/18/18 Tamsulosin [Flomax*] 1 tab PO DAILY 12/18/18 Vit D3 1,000 iu PO DAILY 12/18/18 - Past Medical/Surgical History Has patient received pneumonia vaccine in the past: Yes Diabetic: Yes -: B-cell Lymphoma -: DM II -: dyslipidemia -: back -: tonsillectomy -: corneal transplants -: rt eye removed - Family History Father Medical History: Diabetes, Cancer - Social History Smoking Status: Never smoker Alcohol use: Yes CD- Drugs: No Caffeine use: Yes Place of Residence: Home Review of Systems 10-point ROS is otherwise unremarkable Physical Examination - Vital Signs Temperature: 99.3 F Blood Pressure: 87/59 Pulse: 82 Respirations: 18 Pulse Ox (%): 96 - Physical Exam General: Alert, In no apparent distress, Oriented x3, Other ( Lethargic but follows all commands) HEENT: Atraumatic, PERRLA, Mucous membr. moist/pink, EOMI, Sclerae nonicteric Neck: Supple, 2+ carotid pulse no bruit, No LAD, Without JVD or thyroid abnormality Respiratory: Clear to auscultation bilaterally, Normal air movement Cardiovascular: Regular rate/rhythm, Normal S1 S2, No murmurs Gastrointestinal: Normal bowel sounds, Soft and benign, Non-distended, Tenderness Musculoskeletal: No clubbing, No swelling, No tenderness Integumentary: No rashes Neurological: Normal gait, Normal speech, Normal tone, Sensation intact, Cranial nerves 3-12 intact, Normal affect, Abnormal strength Lymphatics: No axilla or inguinal lymphadenopathy Assessment & Plan - Problems (Diagnosis) (1) Intractable pain Current Visit: Yes Status: Acute (2) Diaphoresis Current Visit: Yes Status: Acute (3) B-cell lymphoma Current Visit: No Status: Acute Qualifiers: (4) Fever Current Visit: No Status: Acute Qualifiers: (5) Diabetes mellitus Current Visit: No Status: Chronic Qualifiers: (6) Dyslipidemia Current Visit: No Status: Chronic - Plan Plan: 1. Gentle hydration 2. Antipyretics 3. Pain control 4. Monitor labs closely 5. Plan to arrange for discharge on Saturday morning to follow up with Oncology. Discharge Plan: Home - Advance Directives Does patient have a Living Will: No Does patient have a Durable POA for Healthcare: No - Code Status/Comfort Care Code Status Assessed: Yes Code Status: Full Code Critical Care: No Time Spent Managing PTS Care (In Minutes): 45
[2018-12-21] MEDS ORDERED: FENTANYL CITR 100 MCG/2 ML IV ONE ×2 (11:14→14:00)
[2018-12-21] MEDS ORDERED: FENTANYL 50 MCG/PATCH TD SCH ×3 (12:00→17:00)
--- NOTE | 2018-12-21 12:05 | P.PN ---
Subjective Date of Service: 12/21/18 Chief Complaint: Abdominal pain / fever / intractable pain Review of Systems 10-point ROS is otherwise unremarkable Physical Examination - Vital Signs Temperature: 99.3 F Blood Pressure: 87/59 Pulse: 82 Respirations: 18 Pulse Ox (%): 96 - Physical Exam General: Alert, Mild distress HEENT: Atraumatic, PERRLA, EOMI Neck: Supple, JVD not distended Respiratory: Clear to auscultation bilaterally, Normal air movement Cardiovascular: Regular rate/rhythm, Normal S1 S2 Gastrointestinal: Normal bowel sounds, No tenderness Musculoskeletal: Tenderness Integumentary: No rashes Neurological: Normal speech, Normal tone, Normal affect Lymphatics: No axilla or inguinal lymphadenopathy - Studies Medications List Reviewed: Yes Assessment And Plan - Current Problems (Diagnosis) (1) Fever Current Visit: No Status: Acute Plan: Fever most likely associated with the signs of B-cell lymphoma -blood culture and urine culture pending at this time Qualifiers: (2) Intractable pain Current Visit: Yes Status: Acute Plan: Patient was unable to fill his Arion prescription at home tramadol was not helping with the pain currently patient with intractable pain with diaphoresis and fever -started on fentanyl IV q.6 hr -Arion orally for breakthrough pain -will monitor patient closely (3) B-cell lymphoma Current Visit: No Status: Acute Plan: Recent diagnosis of diffuse large B-cell lymphoma does have an appointment with oncology tomorrow at 9:30 a.m.. -will discharge patient in 24 hr on oral pain medication to have a followup appointment with oncology if his pain is controlled on oral medication. Qualifiers: B-cell lymphoma type: diffuse large B-cell Lymphoma site: intra-abdominal nodes Qualified Code(s): C83.33 - Diffuse large B-cell lymphoma, intra- abdominal lymph nodes (4) Diabetes mellitus Current Visit: No Status: Chronic Qualifiers: Diabetes mellitus type: type 2 Diabetes mellitus terminal superintendent insulin use: without terminal superintendent use Diabetes mellitus complication status: without complication Qualified Code(s): E11.9 - Type 2 diabetes mellitus without complications (5) Dyslipidemia Current Visit: No Status: Chronic Discharge Plan: Home Plan to discharge in: 24 Hours - Code Status/Comfort Care Code Status Assessed: Yes Critical Care: No
--- NOTE | 2018-12-21 20:11 | EKG ---
Test Date: 2018-12-20 Test Time: 21:58:52 Process Supervisor: REHANA MEASUREMENT RESULTS: Intervals: Rate: 82 ME: 146 QRSD: 96 QT: 350 QTc: 408 [place]: P: 18 ME: 146 QRS: 57 T: 20 INTERPRETIVE STATEMENTS: Sinus rhythm with premature atrial complexes in a pattern of bigeminy Otherwise normal ECG Compared to ECG 12/18/2018 17:28:02 No significant changes Electronically Signed On 12-21-18 20:09:02 CDT by Marcus Marlow
[2018-12-21] MEDS ORDERED: KETOROLAC 30 MG/ML INJ IV ONE (23:50)
[2018-12-22] MEDS: NA CHLORIDE 0.9% 1,000 ML IV SCH (04:58)
[2018-12-22] MEDS: ACETAMINOPHEN 500 MG TAB PO PRN (05:05)
[2018-12-22 08:16] VITALS: O2SAT 98
[2018-12-22 09:20] VITALS: BP 99/60; TEMP 98.2
--- NOTE | 2018-12-22 13:20 | P.SSS ---
Patient History Date of Service: 12/22/18 Reason for admission: Abdominal pain / fever / intractable pain History of Present Illness: See HPI Allergies moxifloxacin [From Avelox] Allergy (Verified 12/18/18 23:16) Rash Home Medications: Krill/Sunburst-3/Dha/Epa/Lipids [Krill Oil 350 mg Softgel] 1 cap PO DAILY 12/18/18 Levocetirizine Dihydrochloride [Xyzal] 1 tab PO DAILY 12/18/18 Lifitegrast [Xiidra] 2 drops RIGHT EYE DAILY 12/18/18 Multivit-Min/FA/Lycopen/Lutein [Centrum Silver Tablet] 1 each PO DAILY 12/18/18 Pantoprazole [Protonix Tab*] 1 tab PO DAILY 12/18/18 Tamsulosin [Flomax*] 1 tab PO DAILY 12/18/18 Vit D3 1,000 iu PO DAILY 12/18/18 - Past Medical/Surgical History Has patient received pneumonia vaccine in the past: Yes Diabetic: Yes -: B-cell Lymphoma -: DM II -: dyslipidemia -: back -: tonsillectomy -: corneal transplants -: rt eye removed - Family History Father -: Diabetes, Cancer - Social History Smoking Status: Never smoker Alcohol use: Yes CD- Drugs: No Caffeine use: Yes Place of Residence: Home Review of Systems 10-point ROS is otherwise unremarkable Physical Examination - Vital Signs Temperature: 98.2 F Blood Pressure: 99/60 Pulse: 64 Respirations: 16 Pulse Ox (%): 98 - Physical Exam General: Alert, In no apparent distress HEENT: Atraumatic, PERRLA, Mucous membr. moist/pink, EOMI, Sclerae nonicteric Neck: Supple, 2+ carotid pulse no bruit, No LAD, Without JVD or thyroid abnormality Respiratory: Clear to auscultation bilaterally, Normal air movement Cardiovascular: Regular rate/rhythm, Normal S1 S2 Gastrointestinal: Normal bowel sounds, No tenderness Musculoskeletal: No tenderness Integumentary: No rashes Neurological: Normal gait, Normal speech, Normal strength at 5/5 x4 extr, Normal tone, Normal affect Lymphatics: No axilla or inguinal lymphadenopathy - Diagnosis (Problem(s)) (1) Fever Status: Acute Plan: Fever most likely associated with the signs of B-cell lymphoma -blood culture and urine culture negative at 48 hr Qualifiers: (2) Intractable pain Status: Acute Plan: Patient was unable to fill his [place] prescription at home tramadol was not helping with the pain currently patient with intractable pain with diaphoresis and fever -patient was given fentanyl patch here in the hospital and was discharged rate to the oncology office were he will have followup for his B-cell lymphoma and pain management. -patient's pain was controlled here in the hospital on IV fentanyl and after that he was put on fentanyl patches (3) B-cell lymphoma Status: Acute Plan: Recent diagnosis of diffuse large B-cell lymphoma does have an appointment with oncology today at 9:30 a.m.. Qualifiers: B-cell lymphoma type: diffuse large B-cell Lymphoma site: intra-abdominal nodes Qualified Code(s): C83.33 - Diffuse large B-cell lymphoma, intra- abdominal lymph nodes (4) Diabetes mellitus Status: Chronic Qualifiers: Diabetes mellitus type: type 2 Diabetes mellitus terminal gauger insulin use: without terminal gauger use Diabetes mellitus complication status: without complication Qualified Code(s): E11.9 - Type 2 diabetes mellitus without complications (5) Dyslipidemia Status: Chronic - Disposition Disposition: ROUTINE DISCHARGE
[2018-12-24] MEDS ORDERED: FENTANYL 50 MCG/PATCH TD SCH (09:00)
== END 2018-12-22 08:55 | disposition home or self-care (01) ==
LOC: ER 19:57 → ERHOLD 21:11 → 4TH 23:04
PROVIDERS: ADMIT Hospitalist; ATTEND Family Medicine
DX: C83.33 Diffuse large B-cell lymphoma, intra-abdominal lymph nodes (principal); R10.9 Unspecified abdominal pain; R61 Generalized hyperhidrosis; E11.9 Type 2 diabetes mellitus without complications; E78.5 Hyperlipidemia, unspecified; Z79.899 Other long term (current) drug therapy
CPT/HCPCS: 93005; 87040 ×2; 85025 ×2; 80048; 36415; 82550; 85610; 82962; 80076; 83605 ×2; 81015; 84484; 83690; 80053; 84145; 71045; 99285; J3010 ×2; J1170 ×2; J7030 ×4; G0378 ×2